=== PATIENT | female | born 1980 | race Caucasian/White ===

== ENCOUNTER 2022-08-06 06:52 | Observation (INO) ==
--- NOTE | 2022-08-05 15:46 | XRay Report ---
CLINICAL INFORMATION: Preop COMPARISON: 07/06/2022 TECHNIQUE: PA and Lateral views FINDINGS: The heart size, mediastinum and pulmonary vessels are unremarkable. The lungs are clear. There are no effusions. The bones and soft tissues are within normal limits. IMPRESSION: Normal chest. Interpreted and Authenticated by: Gerardo Lebron 08/05/22
[2022-08-05 16:08] LABS: INR 0.9 (0.9-1.1); Partial Thromboplastin Time 28.6 sec (20.0-37.0)
[~2022-08-06 06:52] MED LIST: ceFAZolin 2 GM in DEXTROSE 5% IN WATER 50 ML IV SCH
[2022-08-06] MEDS ORDERED: SUGAMMADEX SODIUM 200 MG/2 ML VIAL IV ONE (08:20)
[2022-08-06] MEDS ORDERED: KETAMINE 50 MG/ML Syringe (ANEST) IV ONE (08:20)
[2022-08-06] MEDS ORDERED: fentaNYL 100 MCG/2 ML VIAL IV ONE (08:20)
[2022-08-06] MEDS ORDERED: MAGNESIUM SULFATE 2 GM/50 ML BAG IV ONE (08:20)
[2022-08-06] MEDS ORDERED: PROPOFOL 200 MG/20 ML VIAL IV ONE (08:20)
[2022-08-06] MEDS ORDERED: ROCURONIUM 10 MG/ML ML IV ONE (08:20)
[2022-08-06] MEDS ORDERED: LIDOCAINE HCL/PF 100 MG/5 ML SYRINGE IV ONE (08:20)
[2022-08-06] MEDS ORDERED: ONDANSETRON 4 MG/2 ML VIAL ONE (08:20)
[2022-08-06] MEDS ORDERED: DEXAMETHASONE 10 MG/ML VIAL ONE (08:20)
[2022-08-06] MEDS ORDERED: ACETAMINOPHEN 1,000 MG/100 ML BAG IV ONE (08:58)
[2022-08-06] MEDS ORDERED: LACTATED RINGERS 250 ML IV PRN (08:58)
[2022-08-06] MEDS ORDERED: IPRATROPIUM/ALBUTEROL 3 ML AMPUL.NEB NEB PRN (08:58)
[2022-08-06] MEDS ORDERED: KETOROLAC 30 MG/ML VIAL IV PRN (08:58)
[2022-08-06] MEDS ORDERED: LACTATED RINGERS 1,000 ML IV SCH (09:00)
[2022-08-06] MEDS ORDERED: PROMETHAZINE 25 MG/ML VIAL IM PRN (09:04)
[2022-08-06] MEDS ORDERED: ONDANSETRON 4 MG/2 ML VIAL IV PRN (09:04)
[2022-08-06] MEDS ORDERED: MEPERIDINE 50 MG/ML VIAL IM PRN (09:04)
[2022-08-06] MEDS ORDERED: MEPERIDINE 25 MG/ML VIAL IV PRN (09:04)
[2022-08-06] MEDS ORDERED: diphenhydrAMINE 50 MG/ML VIAL IV PRN (09:04)
[2022-08-06] MEDS ORDERED: NALOXONE HCL 0.4 MG/ML VIAL IV PRN (09:04)
[2022-08-06] MEDS ORDERED: PROMETHAZINE 25 MG/ML VIAL IV PRN (09:04)
--- NOTE | 2022-08-06 09:39 | Brief Operative Note ---
Brief Operative Note Date of procedure: 08/06/22 Pre-op diagnosis: cholelithiasis with cholecystitis Post-op diagnosis: other (cholelithiasis with cholecystitis) Procedure: LAPAROSCOPIC CHOLECYSTECTOMY Grafts/Implants: No Anesthesia: GETA Findings: DILATED GALLBLADDER Complications: none Surgeon: Faisal Cunningham Estimated blood loss (cc): 20 Specimens Removed/Pathology: other (GALLBLADDER) Condition: stable Disposition: ICU
[2022-08-06] MEDS: fentaNYL 100 MCG/2 ML VIAL IV PRN ×4 (09:57→10:15)
[2022-08-06] MEDS ORDERED: ALBUTEROL SULFATE 60 PUFF INHALER INH PRN (10:51)
[2022-08-06] MEDS: HYDROmorphone 1 MG/ML SYRINGE IV PRN ×5 (10:55→19:43)
[2022-08-06] MEDS ORDERED: ONDANSETRON 4 MG ODT TABLET PO PRN (10:56)
[2022-08-06] MEDS: oxyCODONE IR 5 MG TABLET PO PRN ×3 (13:07→21:44)
[2022-08-06] MEDS: ONDANSETRON 4 MG/2 ML VIAL IV PRN ×2 (15:04→21:55)
[2022-08-06] MEDS: PREGABALIN 150 MG CAPSULE PO SCH ×2 (15:08→21:40)
[2022-08-06] MEDS: GABAPENTIN 300 MG CAPSULE PO SCH ×2 (15:08→21:40)
[2022-08-06] MEDS: AMITRIPTYLINE 25 MG TABLET PO SCH (21:40)
[2022-08-06] MEDS: buPROPion 150 MG TAB.SR.12H PO SCH (21:40)
[2022-08-07] MEDS: HYDROmorphone 1 MG/ML SYRINGE IV PRN ×7 (00:39→21:26)
[2022-08-07] MEDS: oxyCODONE IR 5 MG TABLET PO PRN ×5 (01:52→23:52)
[2022-08-07] MEDS: ONDANSETRON 4 MG/2 ML VIAL IV PRN ×3 (09:08→22:18)
[2022-08-07] MEDS: buPROPion 150 MG TAB.SR.12H PO SCH ×2 (09:09→20:57)
[2022-08-07] MEDS: PREGABALIN 150 MG CAPSULE PO SCH ×3 (09:09→20:57)
[2022-08-07] MEDS: ESCITALOPRAM 10 MG TABLET PO SCH (09:09)
[2022-08-07] MEDS: GABAPENTIN 300 MG CAPSULE PO SCH ×3 (09:09→20:57)
[2022-08-07] MEDS: PROMETHAZINE 25 MG/ML VIAL IV PRN (12:40)
--- NOTE | 2022-08-07 13:58 | General Surgery Progress Note ---
SUBJECTIVE Subjective Patient information: Note initiated : 08/07/22 at 1:55 pm Service Date, if different from initiated Date: [] Patient: Santa Geurra 41 y/o F admitted on for Laparoscopic Cholecystectomy . Chief Complaint: [] Principal diagnosis: Cholecystitis with cholelithiasis Interval history: Patient is postop cholecystectomy. She had nausea with vomiting with meals today. She is having increased abdominal pain. She is also having increased indigestion. Constitutional Vitals: Vital Signs Temp Pulse Resp BP Pulse Ox O2 Del Method O2 Flow Rate 97.4 F 90 16 114/64 94 Room Air 1 08/07/22 11:19 08/07/22 10:29 08/07/22 10:29 08/07/22 10:29 08/07/22 10:29 08/07/22 10:29 08/06/22 19:42 Period Temp Pulse Resp BP Sys/Riggs Pulse Ox O2 Del Method O2 Flow Rate Last 24 Hr 97.3 F-98.5 F 70-90 16-20 100-115/64-78 91-97 Nasal Cannula- Room Air 1-2 Intake and Output 08/07/22 08/07/22 08/07/22 03:59 11:59 19:59 Intake Total 240 840 Balance 240 840 Intake & Output: Intake & Output 08/07/22 08/07/22 08/07/22 03:59 11:59 19:59 Intake Total 240 840 Balance 240 840 Intake: Oral 240 240 GI Tube Flush 600 Other: Meal Breakfast Percent of Meal Consumed 50% Feeding Ability Independent # Voids 1 ENT ENT exam: Present mucous membranes moist Neck Neck exam: Present normal inspection Respiratory Respiratory exam: Present normal respiratory exam Cardiovascular Cardiovascular exam: Present normal rate and rhythm, RRR, +S1 and +S2 GI/Abdominal GI/Abdominal exam: Present normal bowel sounds and tenderness (Tenderness around port sites) A/P Assessment and plan (1) Cholecystitis, acute with cholelithiasis: Status: Acute (2) Generalized anxiety disorder with panic attacks: Status: Acute (3) Postoperative nausea and vomiting: Status: Acute Plan Delay discharge home Pantoprazole IV twice daily Promethazine 12.5 mg IV every 4 hours as needed Check CBC and inpatient panel tomorrow Time Spent With Patient Time: Total time spent is greater than 50% in coordination of care (as documented) at patient's floor/unit and/or counseling patient:
[2022-08-07] MEDS ORDERED: PANTOPRAZOLE 40 MG VIAL IV SCH (17:00)
[2022-08-07] MEDS: PANTOPRAZOLE 40 MG VIAL IV SCH (17:26)
[2022-08-07] MEDS: POLYETHYLENE GLYCOL 3350 17 GM PACKET PO SCH (20:57)
[2022-08-07] MEDS: AMITRIPTYLINE 25 MG TABLET PO SCH (20:57)
[2022-08-08] MEDS: HYDROmorphone 1 MG/ML SYRINGE IV PRN ×6 (00:14→12:33)
[2022-08-08] MEDS: oxyCODONE IR 5 MG TABLET PO PRN ×5 (04:05→20:05)
[2022-08-08 06:34] LABS: Basophils # (Auto) 0.08 K/mcL (0.00-0.30); Basophils % (Auto) 0.7 % (0.0-2.0); Eosinophils # (Auto) 0.16 K/mcL (0.00-0.70); Eosinophils % (Auto) 1.3 % (0.0-7.0); Hematocrit 36.2 % (34.1-44.9); Hemoglobin 11.5 g/dL (11.2-15.7); Lymphocytes # (Auto) 3.47 K/mcL (1.50-4.80); Lymphocytes % (Auto) 29.1 % (15.5-49.0); Mean Corpuscular HGB Conc 31.8 g/dL (31.0-36.0); Mean Platelet Volume 10.4 fL (8.8-12.5); Monocytes # (Auto) 0.91 K/mcL (0.10-0.90); Monocytes % (Auto) 7.6 % (1.0-12.0); Neutrophils % (Auto) 60.2 % (38.0-78.0); Platelet Count 290 K/mcL (140-440); RBC 3.77 M/mcL (3.59-5.38); Red Cell Distribution Width 13.6 % (11.5-14.5); WBC 11.9 K/mcL (4.5-11.0)
[2022-08-08 06:53] LABS: ALT/SGPT 44 U/L (<40); AST/SGOT 32 U/L (<32); Albumin 3.9 gm/dL (3.2-5.2); Albumin/Globulin Ratio 1.2 (1.0-2.3); Alkaline Phosphatase 81 U/L (39-117); Bilirubin,Direct < 0.2 mg/dL (0-0.3); Bilirubin,Total 0.2 mg/dL (0.1-1.0); Blood Urea Nitrogen 9 mg/dL (6-20); Calcium 8.9 mg/dL (8.6-10.4); Carbon Dioxide 30 mmol/L (22-30); Chloride 98 mmol/L (96-108); Globulin 3.3 gm/dL (2.2-3.7); Glomerular Filtration Rate 106; Glucose 117 mg/dL (70-105); Lactate Dehydrogenase 266 U/L (135-225); Phosphorous 4.3 mg/dL (2.5-4.5); Triglycerides 126 mg/dL (<150)
[2022-08-08] MEDS: PANTOPRAZOLE 40 MG VIAL IV SCH ×2 (07:40→17:27)
[2022-08-08] MEDS: ONDANSETRON 4 MG/2 ML VIAL IV PRN ×2 (07:40→16:56)
[2022-08-08] MEDS: PREGABALIN 150 MG CAPSULE PO SCH ×3 (08:28→20:06)
[2022-08-08] MEDS: buPROPion 150 MG TAB.SR.12H PO SCH ×2 (08:29→20:05)
[2022-08-08] MEDS: ESCITALOPRAM 10 MG TABLET PO SCH (08:29)
[2022-08-08] MEDS: POLYETHYLENE GLYCOL 3350 17 GM PACKET PO SCH ×2 (08:29→20:06)
[2022-08-08] MEDS: GABAPENTIN 300 MG CAPSULE PO SCH ×3 (08:29→20:06)
[2022-08-08] MEDS: PROMETHAZINE 25 MG/ML VIAL IV PRN (10:19)
--- NOTE | 2022-08-08 14:05 | General Surgery Progress Note ---
SUBJECTIVE Subjective Patient information: Note initiated : 08/08/22 at 2:01 pm Service Date, if different from initiated Date: [] Patient: Santa Guerra 41 y/o F admitted on 08/07/22 for Post-op Nausea. Chief Complaint: [] Principal diagnosis: Cholecystitis with cholelithiasis Interval history: Patient had increased cough with shortness of breath during the night. He was noted that her oxygen saturations down in the 80% range. She has been afebrile. Cough is productive of clear sputum. She had 1 episode of nausea with vomiting earlier this morning after meals. White blood count 11.9, hemoglobin 11.5 hematocrit 36.2. Constitutional Vitals: Vital Signs Temp Pulse Resp BP Pulse Ox O2 Del Method O2 Flow Rate 97.7 F 86 18 111/65 89 L Room Air 1 08/08/22 11:59 08/08/22 11:59 08/08/22 11:59 08/08/22 11:59 08/08/22 11:59 08/08/22 11:59 08/06/22 19:42 Period Temp Pulse Resp BP Sys/Riggs Pulse Ox O2 Del Method O2 Flow Rate Last 24 Hr 97 F-99.1 F 76-88 18-18 106-112/59-76 89-97 Room Air-Room Air Intake and Output 08/08/22 08/08/22 08/08/22 03:59 11:59 19:59 Intake Total 800 Balance 800 Weight 315 lb 4.8 oz Intake & Output: Intake & Output 08/08/22 08/08/22 08/08/22 03:59 11:59 19:59 Intake Total 800 Balance 800 Weight 315 lb 4.8 oz Intake: Oral 800 Other: # Voids 4 Head Head exam: Present atraumatic, normal inspection and normocephalic Eye Eye exam: Present EOMI and normal appearance ENT ENT exam: Present normal exam and normal oropharynx Neck Neck exam: Present full ROM and normal inspection Respiratory Respiratory exam: Present normal respiratory exam and CTAB Cardiovascular Cardiovascular exam: Present normal rate and rhythm, RRR, +S1 and +S2; Absent JVD GI/Abdominal GI/Abdominal exam: Present normal bowel sounds, distended and tenderness (Mild tenderness in port sites) Extremities Exam Extremities exam: Present normal inspection and neurovascular intact; Absent calf tenderness A/P Assessment and plan (1) Cholecystitis, acute with cholelithiasis: Status: Acute (2) Postoperative nausea and vomiting: Status: Acute (3) Generalized anxiety disorder with panic attacks: Status: Acute (4) Acute bronchitis: Status: Acute (5) Situational anxiety: Status: Acute (6) Sleep apnea: Status: Chronic Comment: currently off CPAP due to insurance problems Qualifiers: Sleep apnea type: obstructive Qualified Code(s): G47.33 - Obstructive sleep apnea (adult) (pediatric) Plan Chest x-ray Probable discharge tomorrow Time Spent With Patient Time: Total time spent is greater than 50% in coordination of care (as documented) at patient's floor/unit and/or counseling patient:
--- NOTE | 2022-08-08 14:45 | XRay Report ---
CLINICAL INFORMATION: Increased cough and congestion with decreased oxyg COMPARISON: 08/05/2022 FINDINGS: Heart size, mediastinum and pulmonary vessels are normal. Lungs are clear. No effusions. IMPRESSION: Normal Interpreted and Authenticated by: Gerardo Lebron 08/08/22
[2022-08-08] MEDS ORDERED: ACETAMINOPHEN 500 MG TABLET PO PRN (15:25)
[2022-08-08] MEDS: ACETAMINOPHEN 500 MG TABLET PO PRN ×2 (15:45→20:05)
[2022-08-08] MEDS ORDERED: CYCLOBENZAPRINE 10 MG TABLET PO PRN (15:50)
[2022-08-08] MEDS: AMITRIPTYLINE 25 MG TABLET PO SCH (20:05)
[2022-08-09] MEDS: oxyCODONE IR 5 MG TABLET PO PRN ×4 (00:13→13:32)
[2022-08-09] MEDS: ACETAMINOPHEN 500 MG TABLET PO PRN (04:33)
[2022-08-09] MEDS: PANTOPRAZOLE 40 MG VIAL IV SCH (07:31)
[2022-08-09] MEDS: buPROPion 150 MG TAB.SR.12H PO SCH (08:38)
[2022-08-09] MEDS: POLYETHYLENE GLYCOL 3350 17 GM PACKET PO SCH (08:38)
[2022-08-09] MEDS: ESCITALOPRAM 10 MG TABLET PO SCH (08:38)
[2022-08-09] MEDS: GABAPENTIN 300 MG CAPSULE PO SCH (08:38)
[2022-08-09] MEDS: PREGABALIN 150 MG CAPSULE PO SCH (08:38)
--- NOTE | 2022-08-09 13:26 | Discharge Summary ---
Discharge Provider Provider IMPORTANT FOLLOW-UP INFORMATION FOR PCP: Patient information: Note initiated : 08/09/22 at 1:21 pm Service Date, if different from initiated Date: [] Patient: Santa Guerra 41 y/o F admitted on 08/07/22 for Post-op Nausea. Chief Complaint: [] Date of admission: 08/07/22 16:45 Discharge date: 08/09/22 Primary care physician: Gerardo Zarate DO Admitting clinician: Faisal Cunningham Attending physician on admission: Faisal Cunningham Attending physician on discharge: Faisal Cunningham Discharging clinician: Faisal Cunningham COURSE Hospital Course Hospital course: 41-year-old female with history of acute cholecystitis with cholelithiasis. She underwent cholecystectomy on 06 August 2022. She had nausea and vomiting in the postop.. Her discharge was delayed. At this time she is stable and is tolerating diet without difficulty. She does not have nausea. Her pain is better controlled. Patient is stable for discharge home. Discharge diagnosis: Cholelithiasis with cholecystitis Secondary discharge diagnosis: Postoperative nausea vomiting Generalized anxiety disorder Chronic bronchitis Reason for admission: Postoperative cholecystectomy Procedures: Laparoscopic cholecystectomy Complications: None Time Spent with Patient Time attestation: Total time spent providing and/or coordinating discharge services: Time spent: Less than 30 minutes Physical Examination Vital Signs Vital signs: Temp Pulse Resp BP Pulse Ox O2 Del Method O2 Flow Rate 98.6 F 79 20 117/63 95 Room Air 2 08/09/22 11:39 08/09/22 11:39 08/09/22 11:39 08/09/22 11:39 08/09/22 11:39 08/09/22 11:39 08/08/22 20:00 General physical appearance General physical exam: well developed, well nourished, no distress, no pain and obese Eyes Eye exam: PERRL and normal ocular movement; negative icteric ENT ENT exam: no congestion Head Head exam IM: Present atraumatic, normal inspection and normocephalic Neck Neck exam: no masses, no bruits, trachea midline, no lymphadenopathy and no venous distension Cardiovascular Cardiovascular exam IM: Present normal rate and rhythm, RRR, +S1 and +S2; Absent JVD Respiratory Respiratory exam: normal expansion, normal respiratory effort and clear to auscultation Abdomen Abdomen: Present soft, non tender, bowel sounds (Normal active scheduled discharge) and surgical scars (Port sites look good) Integumentary Integumentary: Present no rash, no growths and no abnormal pigmentation Neurologic Neurologic: Present normal coordination and normal sensation Musculoskeletal Musculoskeletal: Present normal gait and normal posture Psychiatric Psychiatric: Present oriented to time, oriented to person, oriented to place, speech is normal and memory intact Discharge Plan Patient/Caregiver Discharge Instructions Activity: increase activity as tolerated Diet: Regular Diet and Low Fat Prescriptions: New oxycodone-acetaminophen [Endocet] 10-325 mg tablet 1 tab PO Q4H PRN (Reason: Pain) Qty: 30 0RF Continued escitalopram oxalate [Lexapro] 10 mg tablet 10 mg PO QDAY Qty: 90 3RF cyclobenzaprine 10 mg tablet 10 mg PO TID PRN (Reason: muscle spasm) Qty: 90 3RF sumatriptan succinate [Imitrex] 50 mg tablet See Rx Instructions PO .COMPLEX Qty: 10 0RF Hold Instructions: Doctor's Order Rx Instructions: take 1 tab at onset of headache; if no relief may repeat 1 tab after at least 1 hr; max = 3 tabs/24 hr PO pregabalin [Lyrica] 150 mg capsule 150 mg PO TID Qty: 90 0RF zolpidem [Ambien CR] 12.5 mg tablet,ext release multiphase 12.5 mg PO QHS PRN (Reason: insomnia) Qty: 30 0RF alprazolam [Xanax] 0.5 mg tablet 0.5 mg PO QHS PRN (Reason: dental procedure) Qty: 14 0RF esomeprazole magnesium 20 mg capsule,delayed release(DR/EC) 20 mg PO QDAY albuterol sulfate 90 mcg/actuation HFA aerosol inhaler 2 puff inhalation Q6H PRN (Reason: shortness of breath or wheezing) Qty: 8.5 0RF bupropion HCl [Wellbutrin SR] 150 mg tablet sustained-release 12 hr 150 mg PO BID Qty: 180 3RF amitriptyline 10 mg tablet 50 mg PO HS gabapentin 300 mg capsule 300 mg PO TID ondansetron 4 mg tablet,disintegrating 4 mg PO Q8H PRN (Reason: nausea and vomiting) Qty: 10 0RF Discontinued hydrocodone-acetaminophen 10-325 mg tablet 1 tab PO Q8H PRN (Reason: pain) Qty: 90 0RF Prescription drug monitoring program results: PDMP not reviewed Follow Up Plan Follow up with: Faisal Cunningham MD [Physician] - 08/19/22 10:15 am Patient Disposition: Home, Self-Care Rehab Potential: Good I certify that the patient requires SNF services: No Overall status at discharge: patient is progressing back to baseline Discharge Orders: Discharge Order (Routine); Ordered 08/09/22 Ordered By: Faisal Cunningham Pending Pending Pending: Diet Regular Diet Start Sat Aug 07 745 Acetaminophen (Acetaminophen 500 Mg Tablet) 1,000 mg PO Q4HP PRN; Protocol PRN Reason: Per Pain Protocol Last Admin: 08/09/22 04:33 Dose: 1,000 mg Documented By: [facility] Admin: 08/08/22 20:05 Dose: 1,000 mg Documented By: [facility] Admin: 08/08/22 15:45 Dose: 1,000 mg Documented By: PATRICIA Amitriptyline HCl (Amitriptyline 25 Mg Tablet) 50 mg PO [facility] Last Admin: 08/08/22 20:05 Dose: 50 mg Documented By: Admin: 08/07/22 20:57 Dose: 50 mg [facility]: 08/06/22 21:40 Dose: 50 mg Documented By: RONALD Bupropion HCl (Bupropion 150 Mg Tab.Sr.12h) 150 mg PO BID [facility] Last Admin: 08/09/22 08:38 Dose: 150 mg Documented By: Admin: 08/08/22 20:05 Dose: 150 mg Documented By: Admin: 08/08/22 08:29 Dose: 150 mg Documented By: Admin: 08/07/22 20:57 Dose: 150 mg [facility]: 08/07/22 09:09 Dose: 150 mg Documented By: Admin: 08/06/22 21:40 Dose: 150 mg Documented By: RONALD Cyclobenzaprine HCl (Cyclobenzaprine 10 Mg Tablet) 10 mg PO TIDP PRN PRN Reason: Muscle Spasm Last Admin: 08/08/22 16:07 Dose: 10 mg Documented By: PATRICIA Escitalopram Oxalate (Escitalopram 10 Mg Tablet) 10 mg PO QDAY [facility] Last Admin: 08/09/22 08:38 Dose: 10 mg Documented By: Admin: 08/08/22 08:29 Dose: 10 mg Documented By: Admin: 08/07/22 09:09 Dose: 10 mg Documented By: BRITTANY Gabapentin (Gabapentin 300 Mg Capsule) 300 mg PO TID [facility] Admin: 08/09/22 08:38 Dose: 300 mg Documented By: Admin: 08/08/22 20:06 Dose: 300 mg Documented By: Admin: 08/08/22 13:14 Dose: 300 mg Documented By: Admin: 08/08/22 08:29 Dose: 300 mg Documented By: Admin: 08/07/22 20:57 Dose: 300 mg Documented By: Admin: 08/07/22 15:23 Dose: 300 mg Documented By: Admin: 08/07/22 09:09 Dose: 300 mg Documented By: Admin: 08/06/22 21:40 Dose: 300 mg Documented By: Admin: 08/06/22 15:08 Dose: 300 mg Documented By: DELMY Ondansetron HCl (Ondansetron 4 Mg/2 Ml Vial) 4 mg IV Q4HP PRN; Protocol PRN Reason: Nausea/Vomiting Last Admin: 08/08/22 16:56 Dose: 4 mg Documented By: Admin: 08/08/22 07:40 Dose: 4 mg Documented By: Admin: 08/07/22 22:18 Dose: 4 mg Documented By: Admin: 08/07/22 18:30 Dose: 4 mg Documented By: Admin: 08/07/22 09:08 Dose: 4 mg Documented By: Admin: 08/06/22 21:55 Dose: 4 mg Documented By: Admin: 08/06/22 15:04 Dose: 4 mg Documented By: DELMY Ondansetron HCl (Ondansetron 4 Mg Odt Tablet) 4 mg PO Q8HP PRN PRN Reason: Nausea And Vomiting Last Admin: 08/06/22 17:33 Dose: 4 mg Documented By: DELMY Oxycodone HCl (Oxycodone Ir 5 Mg Tablet) 10 mg PO Q4HP PRN; Protocol PRN Reason: Per Pain Protocol Last Admin: 08/09/22 08:38 Dose: 10 mg Documented By: Admin: 08/09/22 04:33 Dose: 10 mg Documented By: Admin: 08/09/22 00:13 Dose: 10 mg Documented By: Admin: 08/08/22 20:05 Dose: 10 mg Documented By: Admin: 08/08/22 16:06 Dose: 10 mg Documented By: Admin: 08/08/22 12:32 Dose: 10 mg Documented By: Admin: 08/08/22 08:07 Dose: 10 mg Documented By: Admin: 08/08/22 04:05 Dose: 10 mg Documented By: Admin: 08/07/22 23:52 Dose: 10 mg Documented By: Admin: 08/07/22 19:31 Dose: 10 mg Documented By: Admin: 08/07/22 12:41 Dose: 10 mg Documented By: Admin: 08/07/22 07:41 Dose: 10 mg Documented By: Admin: 08/07/22 01:52 Dose: 10 mg Documented By: Admin: 08/06/22 21:44 Dose: 10 mg Documented By: Admin: 08/06/22 17:33 Dose: 10 mg Documented By: Admin: 08/06/22 13:07 Dose: 10 mg Documented By: DELMY Pantoprazole Sodium (Pantoprazole 40 Mg Vial) 40 mg IV BIDAC [facility] Admin: 08/09/22 07:31 Dose: 40 mg Documented By: Admin: 08/08/22 17:27 Dose: 40 mg Documented By: Admin: 08/08/22 07:40 Dose: 40 mg Documented By: Admin: 08/07/22 17:26 Dose: 40 mg Documented By: BRITTANY Polyethylene Glycol (Polyethylene Glycol 3350 17 Gm Packet) 17 gm PO BID [facility] Admin: 08/09/22 08:38 Dose: 17 gm Documented By: Admin: 08/08/22 20:06 Dose: 17 gm Documented By: Admin: 08/08/22 08:29 Dose: 17 gm Documented By: Admin: 08/07/22 20:57 Dose: 17 gm Documented By: ANNA Pregabalin (Pregabalin 150 Mg Capsule) 150 mg PO TID PADMAJA Last Admin: 08/09/22 08:38 Dose: 150 mg Documented By: Admin: 08/08/22 20:06 Dose: 150 mg Documented By: Admin: 08/08/22 13:14 Dose: 150 mg Documented By: Admin: 08/08/22 08:28 Dose: 150 mg Documented By: Admin: 08/07/22 20:57 Dose: 150 mg Documented By: Admin: 08/07/22 15:23 Dose: 150 mg Documented By: Admin: 08/07/22 09:09 Dose: 150 mg Documented By: Admin: 08/06/22 21:40 Dose: 150 mg Documented By: Admin: 08/06/22 15:08 Dose: 150 mg Documented By: DELMY Promethazine HCl (Promethazine 25 Mg/Ml Vial) 12.5 mg IV Q4HP PRN PRN Reason: Nausea And Vomiting Last Admin: 08/08/22 10:19 Dose: 12.5 mg Documented By: Admin: 08/07/22 12:40 Dose: 12.5 mg Documented By: BRITTANY Shift Summary 08/09/22 05:10 Shift Summary by Monisha Sevilla Patient is A/O x 4. VSS, Desats to 80s sleeping, 2L Oxymask applied. States she is supposed to be on CPAP at home but is not in compliance. LAP sites x 5. circled drainage. Voiding BR. Ambulating in the halls. No Nausea. Tolerating snacks and drinks tonight. IV to Rt FA SL. Calls appropriately for cares. Initialized on 08/09/22 05:10 - END OF NOTE
--- NOTE | 2022-08-17 14:32 | Operative Note ---
DATE OF OPERATION: 08/06/2022 PREOPERATIVE DIAGNOSIS: Cholelithiasis with cholecystitis. POSTOPERATIVE DIAGNOSIS: Cholelithiasis with cholecystitis. PROCEDURE: Laparoscopic cholecystectomy. FINDINGS: A dilated gallbladder with small stones. DESCRIPTION OF PROCEDURE: Under general anesthesia, the patient's abdomen was prepped and draped in a sterile field. Timeout procedure was carried out as per protocol. Supraumbilical midline incision was made and Veress needle was inserted. A 12 mm port was placed. Laparoscope was placed. Under videoscopic guidance, a 12 mm port and two 5 mm ports were placed in the right subcostal region. The gallbladder was grasped and positioned. An initial attempt was made to dissect the gallbladder, but because the right lobe of the liver was Reidel, it was necessary to place another port in the left upper quadrant. A 12 mm port was placed and a fan retractor was placed. The fan retractor was used to retract the medial portion of the right lobe of the liver. Once this was done, I was able to see all of the structures at the infundibulum. The cystic duct and cystic artery were dissected definitively. Cystic duct was controlled and divided with the Endo BHUPINDER stapler. Cystic artery was clipped with five clips on the gallbladder and divided. The gallbladder was then from the infrahepatic bed without difficulty. Irrigation was carried out. There was a small amount of bleeding. Surgicel was placed in the bed. It was felt that a drain was not needed. CO2 was allowed to escape from the abdomen and the ports were removed. The fascia at the umbilicus was closed with 0 Vicryl. The skin was closed with leidy. Tegaderm dressings were placed. The patient was awakened, transferred to a bed, and taken to the postanesthetic care unit in satisfactory condition. LCS:elke Job ID: [id number] Doc ID: [id number] Faisal Cunningham M.D.
== END 2022-08-09 14:10 | disposition home or self-care (01) ==
LOC: MEDSUR 06:52 → SUR 06:52 → MEDSUR 10:35
PROVIDERS: ADMIT Family Medicine Adult Medicine; ATTEND Family Medicine Adult Medicine

== ENCOUNTER 2023-10-30 11:34 | Inpatient (IN) ==
[2023-10-30] MEDS ORDERED: IOPAMIDOL 100 ML BOTTLE IV ONE (11:35)
[2023-10-30] MEDS: KETOROLAC 30 MG/ML VIAL IV ONE (12:47)
[2023-10-30] MEDS: ONDANSETRON 4 MG/2 ML VIAL IV ONE ×2 (12:47→14:53)
[2023-10-30] MEDS: 0.9 % SODIUM CHLORIDE 1,000 ML IV ONE (12:47)
[2023-10-30 13:06] LABS: ALT/SGPT 11 U/L (<40); AST/SGOT 20 U/L (<32); Albumin/Globulin Ratio 1.4 (1.0-2.3); Alkaline Phosphatase 78 U/L (39-117); Bilirubin,Total 0.4 mg/dL (0.1-1.0); Blood Urea Nitrogen 5 mg/dL (6-20); Calcium 9.1 mg/dL (8.6-10.4); Carbon Dioxide 24 mmol/L (22-30); Chloride 101 mmol/L (96-108); Globulin 2.8 gm/dL (2.2-3.7); Glomerular Filtration Rate 127; Glucose 114 mg/dL (70-105); Potassium 3.6 mmol/L (3.3-5.1); Sodium 137 mmol/L (133-145)
[2023-10-30] MEDS ORDERED: KETOROLAC 15 MG/ML VIAL IV ONE (13:13)
[2023-10-30] MEDS: HYDROmorphone 1 MG/ML SYRINGE IV ONE (13:24)
[2023-10-30 13:48] LABS: Basophils # (Auto) 0.04 K/mcL (0.00-0.30); Basophils % (Auto) 0.2 % (0.0-2.0); Eosinophils # (Auto) 0.01 K/mcL (0.00-0.70); Eosinophils % (Auto) 0.1 % (0.0-7.0); Hematocrit 36.1 % (34.1-44.9); Hemoglobin 12.4 g/dL (11.2-15.7); Lymphocytes # (Auto) 1.59 K/mcL (1.50-4.80); Lymphocytes % (Auto) 9.7 % (15.5-49.0); Mean Cell Volume 89.4 fL (80.0-100.0); Mean Corpuscular HGB Conc 34.3 g/dL (31.0-36.0); Mean Platelet Volume 10.8 fL (8.8-12.5); Monocytes # (Auto) 1.25 K/mcL (0.10-0.90); Monocytes % (Auto) 7.6 % (1.0-12.0); Platelet Count 316 K/mcL (140-440); RBC 4.04 M/mcL (3.59-5.38); Red Cell Distribution Width 13.4 % (11.5-14.5); WBC 16.4 K/mcL (4.5-11.0)
[2023-10-30] MEDS: PIPERACILLIN SODIUM/TAZOBACTAM 3.375 GM in DEXTROSE 5% IN WATER 50 ML IV ONE (14:27)
[2023-10-30] MEDS: HYDROmorphone 0.5 MG/0.5 ML SYRINGE IV PRN ×2 (14:53→16:36)
[2023-10-30] MEDS ORDERED: ONDANSETRON 4 MG/2 ML VIAL IV PRN (15:09)
[2023-10-30 15:11] LABS: Appearance,Urine Clear (Clear); Bilirubin,Urine Negative (Negative); Color,Urine Yellow; Glucose,Urine (UA) Negative (Negative); Ketones,Urine Trace mg/dL (Negative); Leukocyte Esterase,Urine Negative /uL (Negative); Nitrate,Urine Negative (Negative); Protein,Urine Negative (Negative); Urine Blood Trace-intact ery/mcL (Negative); Urine RBC 1 /hpf (0-3); Urine Squamous Epithelial Cell 4 /hpf (0-4); Urine WBC 1 /hpf (0-4); Urobilinogen,Urine Normal
[2023-10-30] MEDS: DEXTROSE 5%-NS W/20MEQ KCL 1,000 ML IV SCH (16:41)
[2023-10-30] MEDS: ACETAMINOPHEN 650 MG/65 ML BAG IV PRN (16:41)
[2023-10-30] MEDS: PIPERACILLIN SODIUM/TAZOBACTAM 3.375 GM in DEXTROSE 5% IN WATER 100 ML IV SCH ×2 (16:52→17:51)
[2023-10-30] MEDS: ZOLPIDEM 5 MG TABLET PO PRN (21:11)
[2023-10-30] MEDS: AMITRIPTYLINE 25 MG TABLET PO SCH (21:11)
[2023-10-31 06:28] LABS: Hematocrit 35.2 % (34.1-44.9); Hemoglobin 11.8 g/dL (11.2-15.7); Mean Cell Volume 91.7 fL (80.0-100.0); Mean Corpuscular HGB Conc 33.5 g/dL (31.0-36.0); Mean Platelet Volume 10.8 fL (8.8-12.5); Platelet Count 289 K/mcL (140-440); RBC 3.84 M/mcL (3.59-5.38); WBC 15.8 K/mcL (4.5-11.0)
[2023-10-31 07:34] LABS: Blood Urea Nitrogen 4 mg/dL (6-20); Calcium 8.1 mg/dL (8.6-10.4); Carbon Dioxide 24 mmol/L (22-30); Chloride 102 mmol/L (96-108); Glomerular Filtration Rate 127; Glucose 120 mg/dL (70-105); Potassium 3.7 mmol/L (3.3-5.1); Sodium 136 mmol/L (133-145)
[2023-10-31] MEDS ORDERED: PROPOFOL 200 MG/20 ML VIAL IV ONE (11:22)
[2023-10-31] MEDS ORDERED: KETAMINE 50 MG/ML Syringe IV ONE (11:22)
[2023-10-31] MEDS ORDERED: fentaNYL 100 MCG/2 ML VIAL ONE (11:22)
[2023-10-31] MEDS ORDERED: ROCURONIUM 10 MG/ML ML IV ONE (11:23)
[2023-10-31] MEDS ORDERED: MAGNESIUM SULFATE 2 GM/50 ML BAG IV ONE (11:23)
[2023-10-31] MEDS ORDERED: DEXAMETHASONE 10 MG/ML VIAL ONE (11:23)
[2023-10-31] MEDS ORDERED: ONDANSETRON 4 MG/2 ML VIAL ONE (11:23)
[2023-10-31] MEDS ORDERED: LIDOCAINE 2% PF 5 ML VIAL ONE (11:23)
[2023-10-31] MEDS: ceFAZolin 3 GM in DEXTROSE 5% IN WATER 50 ML IV SCH (11:57)
[2023-10-31] MEDS: BUPIVACAINE W/EPI 0.5% 50 ML VIAL IJ ONE (12:24)
[2023-10-31] MEDS ORDERED: MEPERIDINE 25 MG/ML VIAL IV PRN (12:51)
[2023-10-31] MEDS ORDERED: LACTATED RINGERS 250 ML IV PRN (12:51)
[2023-10-31] MEDS ORDERED: NALOXONE HCL 0.4 MG/ML VIAL IV PRN (12:51)
[2023-10-31] MEDS ORDERED: diphenhydrAMINE 50 MG/ML VIAL IV PRN (12:51)
[2023-10-31] MEDS ORDERED: ONDANSETRON 4 MG/2 ML VIAL IV PRN (12:51)
[2023-10-31] MEDS ORDERED: IPRATROPIUM/ALBUTEROL 3 ML AMPUL.NEB NEB PRN (12:51)
[2023-10-31] MEDS ORDERED: SUGAMMADEX SODIUM 200 MG/2 ML VIAL IV ONE (13:09)
[2023-10-31] MEDS: fentaNYL 100 MCG/2 ML VIAL IV PRN (13:41)
[2023-10-31] MEDS: HYDROmorphone 0.5 MG/0.5 ML SYRINGE IV PRN (13:42)
[2023-10-31] MEDS: oxyCODONE IR 5 MG TABLET PO PRN (16:15)
[2023-10-31] MEDS: LACTATED RINGERS 1,000 ML IV SCH (17:50)
[2023-10-31] MEDS: ceFAZolin 2 GM in DEXTROSE 5% IN WATER 50 ML IV SCH (18:01)
[2023-11-01 05:45] LABS: Hematocrit 35.4 % (34.1-44.9); Hemoglobin 11.7 g/dL (11.2-15.7); Mean Cell Volume 91.9 fL (80.0-100.0); Mean Corpuscular HGB Conc 33.1 g/dL (31.0-36.0); Mean Platelet Volume 10.6 fL (8.8-12.5); Platelet Count 285 K/mcL (140-440); RBC 3.85 M/mcL (3.59-5.38); Red Cell Distribution Width 13.9 % (11.5-14.5); WBC 16.9 K/mcL (4.5-11.0)
[2023-11-01 06:29] LABS: ALT/SGPT 31 U/L (<40); AST/SGOT 31 U/L (<32); Albumin 3.8 gm/dL (3.2-5.2); Albumin/Globulin Ratio 1.3 (1.0-2.3); Alkaline Phosphatase 80 U/L (39-117); Bilirubin,Total 0.4 mg/dL (0.1-1.0); Blood Urea Nitrogen 3 mg/dL (6-20); Calcium 8.5 mg/dL (8.6-10.4); Carbon Dioxide 26 mmol/L (22-30); Chloride 100 mmol/L (96-108); Globulin 2.9 gm/dL (2.2-3.7); Glomerular Filtration Rate 127; Glucose 129 mg/dL (70-105); Potassium 3.9 mmol/L (3.3-5.1); Sodium 137 mmol/L (133-145)
[2023-11-01] MEDS: KETOROLAC 15 MG/ML VIAL IV SCH (13:34)
[2023-11-01] MEDS: CIPROFLOXACIN 400 MG/200 ML BAG IV SCH (19:12)
[2023-11-02 05:40] LABS: Hematocrit 32.6 % (34.1-44.9); Hemoglobin 10.7 g/dL (11.2-15.7); Mean Cell Volume 93.7 fL (80.0-100.0); Mean Corpuscular HGB Conc 32.8 g/dL (31.0-36.0); Mean Platelet Volume 10.6 fL (8.8-12.5); Platelet Count 261 K/mcL (140-440); RBC 3.48 M/mcL (3.59-5.38); Red Cell Distribution Width 14.2 % (11.5-14.5); WBC 11.8 K/mcL (4.5-11.0)
[2023-11-02 06:10] LABS: Blood Urea Nitrogen 2 mg/dL (6-20); Calcium 8.2 mg/dL (8.6-10.4); Carbon Dioxide 28 mmol/L (22-30); Chloride 102 mmol/L (96-108); Glomerular Filtration Rate 127; Glucose 107 mg/dL (70-105); Potassium 3.5 mmol/L (3.3-5.1); Sodium 138 mmol/L (133-145)
[2023-11-02] MEDS: METOCLOPRAMIDE 10 MG/2 ML VIAL IV PRN (12:47)
[2023-11-03 06:49] LABS: Basophils # (Auto) 0.06 K/mcL (0.00-0.30); Basophils % (Auto) 0.5 % (0.0-2.0); Eosinophils # (Auto) 0.34 K/mcL (0.00-0.70); Eosinophils % (Auto) 2.8 % (0.0-7.0); Hematocrit 34.8 % (34.1-44.9); Hemoglobin 11.6 g/dL (11.2-15.7); Lymphocytes # (Auto) 1.26 K/mcL (1.50-4.80); Lymphocytes % (Auto) 10.2 % (15.5-49.0); Mean Cell Volume 91.8 fL (80.0-100.0); Mean Corpuscular HGB Conc 33.3 g/dL (31.0-36.0); Monocytes # (Auto) 1.06 K/mcL (0.10-0.90); Monocytes % (Auto) 8.6 % (1.0-12.0); Neutrophils % (Auto) 77.5 % (38.0-78.0); Platelet Count 322 K/mcL (140-440); RBC 3.79 M/mcL (3.59-5.38); Red Cell Distribution Width 13.7 % (11.5-14.5); WBC 12.3 K/mcL (4.5-11.0)
[2023-11-03] MEDS: OMEPRAZOLE 20 MG CAPSULE PO SCH (06:54)
[2023-11-03 07:05] LABS: Blood Urea Nitrogen 3 mg/dL (6-20); Calcium 8.4 mg/dL (8.6-10.4); Carbon Dioxide 27 mmol/L (22-30); Chloride 100 mmol/L (96-108); Glomerular Filtration Rate 127; Glucose 105 mg/dL (70-105); Potassium 3.4 mmol/L (3.3-5.1); Sodium 136 mmol/L (133-145)
[2023-11-04] MEDS: DEXTROSE 5%-NS W/20MEQ KCL 1,000 ML IV SCH (02:10)
[2023-11-04 06:10] LABS: Basophils # (Auto) 0.04 K/mcL (0.00-0.30); Basophils % (Auto) 0.3 % (0.0-2.0); Eosinophils # (Auto) 0.43 K/mcL (0.00-0.70); Eosinophils % (Auto) 2.7 % (0.0-7.0); Hematocrit 32.1 % (34.1-44.9); Hemoglobin 11.2 g/dL (11.2-15.7); Lymphocytes # (Auto) 1.92 K/mcL (1.50-4.80); Lymphocytes % (Auto) 12.2 % (15.5-49.0); Mean Cell Volume 88.4 fL (80.0-100.0); Mean Corpuscular HGB Conc 34.9 g/dL (31.0-36.0); Mean Platelet Volume 10.5 fL (8.8-12.5); Monocytes # (Auto) 1.42 K/mcL (0.10-0.90); Neutrophils % (Auto) 75.1 % (38.0-78.0); Platelet Count 298 K/mcL (140-440); RBC 3.63 M/mcL (3.59-5.38); Red Cell Distribution Width 13.5 % (11.5-14.5); WBC 15.7 K/mcL (4.5-11.0)
[2023-11-04 06:44] LABS: Blood Urea Nitrogen 3 mg/dL (6-20); Calcium 8.4 mg/dL (8.6-10.4); Carbon Dioxide 22 mmol/L (22-30); Chloride 100 mmol/L (96-108); Glomerular Filtration Rate 127; Glucose 111 mg/dL (70-105); Potassium 3.5 mmol/L (3.3-5.1); Sodium 135 mmol/L (133-145)
[2023-11-04] MEDS: BISACODYL 5 MG TABLET PO SCH (09:16)
[2023-11-05 06:13] LABS: Basophils # (Auto) 0.06 K/mcL (0.00-0.30); Basophils % (Auto) 0.4 % (0.0-2.0); Eosinophils % (Auto) 4.5 % (0.0-7.0); Hematocrit 32.3 % (34.1-44.9); Hemoglobin 10.8 g/dL (11.2-15.7); Lymphocytes # (Auto) 1.97 K/mcL (1.50-4.80); Lymphocytes % (Auto) 14.6 % (15.5-49.0); Mean Corpuscular HGB Conc 33.4 g/dL (31.0-36.0); Mean Platelet Volume 10.5 fL (8.8-12.5); Monocytes # (Auto) 1.12 K/mcL (0.10-0.90); Monocytes % (Auto) 8.3 % (1.0-12.0); Neutrophils % (Auto) 71.4 % (38.0-78.0); Platelet Count 306 K/mcL (140-440); RBC 3.51 M/mcL (3.59-5.38); Red Cell Distribution Width 13.5 % (11.5-14.5); WBC 13.5 K/mcL (4.5-11.0)
[2023-11-05 06:55] LABS: Blood Urea Nitrogen 3 mg/dL (6-20); Calcium 8.3 mg/dL (8.6-10.4); Carbon Dioxide 25 mmol/L (22-30); Chloride 102 mmol/L (96-108); Glomerular Filtration Rate 139; Glucose 145 mg/dL (70-105); Potassium 3.3 mmol/L (3.3-5.1); Sodium 137 mmol/L (133-145)
== END 2023-11-05 14:08 | disposition home or self-care (01) | DRG 398 ==
LOC: ED 11:34 → MEDSUR 11:34
PROVIDERS: ADMIT Surgery Surgical Critical Care; ATTEND Surgery Surgical Critical Care
PROC: LAPAPPY (ICD-10-PCS; 2023-10-31 12:05)

== ENCOUNTER 2023-11-08 22:23 | Inpatient (IN) ==
[2023-11-08] MEDS ORDERED: IOPAMIDOL 100 ML BOTTLE IV ONE (22:24)
[2023-11-08] MEDS: ONDANSETRON 4 MG/2 ML VIAL IV ONE (23:17)
[2023-11-08] MEDS: morphine 4 MG/ML VIAL IV ONE (23:17)
[2023-11-08] MEDS: 0.9 % SODIUM CHLORIDE 1,000 ML IV ONE (23:17)
[2023-11-08 23:38] LABS: Basophils # (Auto) 0.06 K/mcL (0.00-0.30); Basophils % (Auto) 0.4 % (0.0-2.0); Eosinophils # (Auto) 0.34 K/mcL (0.00-0.70); Eosinophils % (Auto) 2.1 % (0.0-7.0); Hematocrit 35.1 % (34.1-44.9); Hemoglobin 11.8 g/dL (11.2-15.7); Lymphocytes # (Auto) 2.98 K/mcL (1.50-4.80); Lymphocytes % (Auto) 18.1 % (15.5-49.0); Mean Cell Volume 89.5 fL (80.0-100.0); Mean Corpuscular HGB Conc 33.6 g/dL (31.0-36.0); Mean Platelet Volume 10.5 fL (8.8-12.5); Monocytes # (Auto) 1.31 K/mcL (0.10-0.90); Neutrophils % (Auto) 70.4 % (38.0-78.0); Platelet Count 412 K/mcL (140-440); RBC 3.92 M/mcL (3.59-5.38); Red Cell Distribution Width 13.4 % (11.5-14.5); WBC 16.5 K/mcL (4.5-11.0)
[2023-11-08 23:58] LABS: ALT/SGPT 11 U/L (<40); AST/SGOT 17 U/L (<32); Albumin 3.6 gm/dL (3.2-5.2); Albumin/Globulin Ratio 1.1 (1.0-2.3); Alkaline Phosphatase 83 U/L (39-117); Bilirubin,Total < 0.2 mg/dL (0.1-1.0); Blood Urea Nitrogen 7 mg/dL (6-20); Carbon Dioxide 23 mmol/L (22-30); Chloride 101 mmol/L (96-108); Globulin 3.4 gm/dL (2.2-3.7); Glomerular Filtration Rate 118; Glucose 113 mg/dL (70-105); Potassium 3.9 mmol/L (3.3-5.1); Sodium 137 mmol/L (133-145)
[2023-11-09] MEDS: fentaNYL 100 MCG/2 ML VIAL IV ONE (00:01)
[2023-11-09] MEDS: HYDROmorphone 0.5 MG/0.5 ML SYRINGE IV ONE (00:35)
[2023-11-09 00:46] LABS: Appearance,Urine Slightly Cloudy (Clear); Bacteria,Urine Few /hpf (0); Bilirubin,Urine Negative (Negative); Color,Urine Yellow; Glucose,Urine (UA) Negative (Negative); Ketones,Urine Negative (Negative); Leukocyte Esterase,Urine Trace /uL (Negative); Nitrate,Urine Negative (Negative); PH,Urine 8.5 (5.0-9.0); Protein,Urine Negative (Negative); Specific Gravity,Urine 1.015 (1.000-1.035); Urine Blood Negative ery/mcL (Negative); Urine RBC 0 /hpf (0-3); Urine Squamous Epithelial Cell 2 /hpf (0-4); Urine WBC 7 /hpf (0-4); Urobilinogen,Urine Normal
[2023-11-09] MEDS: CIPROFLOXACIN 400 MG/200 ML BAG IV ONE (01:15)
[2023-11-09] MEDS: oxyCODONE IR 5 MG TABLET PO ONE (01:40)
[2023-11-09] MEDS: metroNIDAZOLE 500 MG/100 ML BAG IV ONE (02:16)
[2023-11-09] MEDS: CIPROFLOXACIN 400 MG/200 ML BAG IV SCH (02:17)
[2023-11-09] MEDS: metroNIDAZOLE 500 MG/100 ML BAG IV SCH (02:22)
[2023-11-09] MEDS: DEXTROSE 5%-LR 1,000 ML IV SCH (02:25)
[2023-11-09] MEDS: HYDROmorphone 0.5 MG/0.5 ML SYRINGE IV PRN (02:39)
[2023-11-09] MEDS: ZOLPIDEM 5 MG TABLET PO PRN (02:39)
[2023-11-09] MEDS: ACETAMINOPHEN 650 MG/65 ML BAG IV PRN (03:34)
[2023-11-09] MEDS: oxyCODONE IR 5 MG TABLET PO PRN ×2 (11:15→16:32)
[2023-11-09] MEDS: METOCLOPRAMIDE 10 MG/2 ML VIAL IV PRN (14:19)
[2023-11-09] MEDS: AMITRIPTYLINE 25 MG TABLET PO SCH (21:34)
[2023-11-10 06:52] LABS: Blood Urea Nitrogen 4 mg/dL (6-20); Calcium 8.8 mg/dL (8.6-10.4); Carbon Dioxide 27 mmol/L (22-30); Chloride 99 mmol/L (96-108); Glomerular Filtration Rate 139; Glucose 109 mg/dL (70-105); Potassium 3.6 mmol/L (3.3-5.1); Sodium 135 mmol/L (133-145)
[2023-11-10 06:57] LABS: Hematocrit 34.4 % (34.1-44.9); Hemoglobin 11.6 g/dL (11.2-15.7); Mean Cell Volume 91.5 fL (80.0-100.0); Mean Corpuscular HGB Conc 33.7 g/dL (31.0-36.0); Mean Platelet Volume 10.4 fL (8.8-12.5); Platelet Count 391 K/mcL (140-440); RBC 3.76 M/mcL (3.59-5.38); Red Cell Distribution Width 13.2 % (11.5-14.5); WBC 16.7 K/mcL (4.5-11.0)
[2023-11-10] MEDS: metroNIDAZOLE 500 MG/100 ML BAG IV SCH (08:09)
[2023-11-10] MEDS: SULFAMETHOXAZOLE/TRIMETHOPRIM 1 TABLET PO SCH (08:47)
[2023-11-10] MEDS: CIPROFLOXACIN 400 MG/200 ML BAG IV SCH (11:29)
[2023-11-11 09:33] LABS: Basophils # (Auto) 0.07 K/mcL (0.00-0.30); Basophils % (Auto) 0.5 % (0.0-2.0); Eosinophils # (Auto) 0.33 K/mcL (0.00-0.70); Eosinophils % (Auto) 2.5 % (0.0-7.0); Hematocrit 35.7 % (34.1-44.9); Hemoglobin 11.7 g/dL (11.2-15.7); Lymphocytes # (Auto) 2.45 K/mcL (1.50-4.80); Lymphocytes % (Auto) 18.5 % (15.5-49.0); Mean Cell Volume 91.8 fL (80.0-100.0); Mean Corpuscular HGB Conc 32.8 g/dL (31.0-36.0); Mean Platelet Volume 10.5 fL (8.8-12.5); Monocytes # (Auto) 0.93 K/mcL (0.10-0.90); Neutrophils % (Auto) 70.4 % (38.0-78.0); Platelet Count 383 K/mcL (140-440); RBC 3.89 M/mcL (3.59-5.38); Red Cell Distribution Width 13.1 % (11.5-14.5); WBC 13.3 K/mcL (4.5-11.0)
[2023-11-12 06:45] LABS: Basophils # (Auto) 0.09 K/mcL (0.00-0.30); Basophils % (Auto) 0.7 % (0.0-2.0); Eosinophils # (Auto) 0.42 K/mcL (0.00-0.70); Eosinophils % (Auto) 3.3 % (0.0-7.0); Hematocrit 35.2 % (34.1-44.9); Hemoglobin 11.8 g/dL (11.2-15.7); Lymphocytes # (Auto) 3.13 K/mcL (1.50-4.80); Lymphocytes % (Auto) 24.9 % (15.5-49.0); Mean Cell Volume 90.7 fL (80.0-100.0); Mean Corpuscular HGB Conc 33.5 g/dL (31.0-36.0); Mean Platelet Volume 10.5 fL (8.8-12.5); Monocytes # (Auto) 0.99 K/mcL (0.10-0.90); Monocytes % (Auto) 7.9 % (1.0-12.0); Neutrophils % (Auto) 61.8 % (38.0-78.0); Platelet Count 409 K/mcL (140-440); RBC 3.88 M/mcL (3.59-5.38); Red Cell Distribution Width 13.2 % (11.5-14.5); WBC 12.6 K/mcL (4.5-11.0)
[2023-11-12 07:29] LABS: Blood Urea Nitrogen 6 mg/dL (6-20); Calcium 8.9 mg/dL (8.6-10.4); Carbon Dioxide 26 mmol/L (22-30); Chloride 99 mmol/L (96-108); Glomerular Filtration Rate 118; Glucose 96 mg/dL (70-105); Potassium 3.8 mmol/L (3.3-5.1); Sodium 135 mmol/L (133-145)
[2023-11-13 06:53] LABS: Hematocrit 37.4 % (34.1-44.9); Hemoglobin 12.4 g/dL (11.2-15.7); Mean Corpuscular HGB Conc 33.2 g/dL (31.0-36.0); Mean Platelet Volume 10.6 fL (8.8-12.5); Platelet Count 440 K/mcL (140-440); RBC 4.11 M/mcL (3.59-5.38); Red Cell Distribution Width 13.1 % (11.5-14.5)
[2023-11-13 07:26] LABS: Blood Urea Nitrogen 7 mg/dL (6-20); Calcium 9.1 mg/dL (8.6-10.4); Carbon Dioxide 28 mmol/L (22-30); Chloride 98 mmol/L (96-108); Glomerular Filtration Rate 118; Glucose 101 mg/dL (70-105); Sodium 135 mmol/L (133-145)
[2023-11-13] MEDS: metroNIDAZOLE 500 MG TABLET PO SCH (14:48)
[2023-11-13] MEDS ORDERED: ONDANSETRON 4 MG ODT TABLET SL PRN (18:57)
[2023-11-13] MEDS: CIPROFLOXACIN 500 MG TABLET PO SCH (21:09)
[2023-11-14 06:41] LABS: Hematocrit 38.2 % (34.1-44.9); Hemoglobin 12.8 g/dL (11.2-15.7); Mean Cell Volume 90.5 fL (80.0-100.0); Mean Corpuscular HGB Conc 33.5 g/dL (31.0-36.0); Mean Platelet Volume 10.9 fL (8.8-12.5); Platelet Count 431 K/mcL (140-440); RBC 4.22 M/mcL (3.59-5.38); Red Cell Distribution Width 13.1 % (11.5-14.5); WBC 11.2 K/mcL (4.5-11.0)
[2023-11-14] MEDS ORDERED: IOPAMIDOL 100 ML BOTTLE IV ONE (10:44)
== END 2023-11-14 16:04 | disposition home or self-care (01) | DRG 862 ==
LOC: MEDSUR 22:23 → ED 22:23 → MEDSUR 11-09 02:02
PROVIDERS: ADMIT Surgery Surgical Critical Care; ATTEND Surgery Surgical Critical Care